=== PATIENT | female | born 1960 | race Caucasian/White ===

== ENCOUNTER 2024-05-31 06:16 | Emergency (ER) | payer BC, SELFPAY ==
--- OUTSIDE RECORDS SUMMARY | 2024-05-31 06:18 | XMS_ITS ---
Author Organization [facility] Address [address] [place] [address] Care Team Providers Care Radio Machinist Name Role Phone Unavailable Unavailable Unavailable Surgery Details Not on file Complications Check Surgery Details section. Procedure Estimated Blood Loss Check Surgery Details section. Procedure Findings Check Surgery Details section. Procedure Specimens Taken Check Surgery Details section.
--- OUTSIDE RECORDS SUMMARY | 2024-05-31 06:18 | XMS_ITS | Clinical Summary ---
Author Organization [facility] Address [address] [place] [id number] Care Team Providers Care Milking Machine Technician Name Role Phone Jayant Mckeon P.A.-C. Primary Care Provider Source Comments Patient records contain information from all sites at [facility]. For routine questions regarding patient records, call [phone] during business hours, M-F 8:00 AM - 5:00 PM Central Time. Record requests for emergency care only can be directed to [phone] at any time.[facility] Allergies Active Allergy Reactions Criticality Noted Date Comments Adhesive Tape-Silicones Rash 06/30/2007 Bee Venom Protein (Honey Bee) Shortness of breath (Reselect Reaction) 06/15/2006 Cephalexin GI intolerance 09/03/2010 Monosodium Glutamate Hypertension 06/15/2006 Camphor Other (see comments) 08/15/2023 Any types of ointments causes skin to dry and breakouts Sulfa (Sulfonamide Antibiotics) GI intolerance,Rash 06/13/2006 upset stomach Medications * This document contains information received from the source organization and may not represent a complete record from that organization. losartan-hydroC HLOROthiazide (HYZAAR) 100-25 mg per tablet Take 1 tablet by mouth daily. 90 tablet 3 06/30/19 24 025 Active EPINEPHrine 0.3 mg/0.3 mL injection syringe Inject 0.3 mL (0.3 mg total) intramuscularly as needed for anaphylaxis. Inject into the thigh. 4 each 3 06/30/19 [address] aspirin [address] tablet Take 81 mg by mouth daily. Active ezetimibe (ZETIA) 10 mg tablet Take 1 tablet (10 mg total) by mouth daily. 90 tablet 3 08/10/19 24 Active UNABLE TO FIND 1 each daily. Estrodim Active UNABLE TO FIND Take 1 each by mouth daily. Zinc Ag Vitamin D Active loratadine (CLARITIN) 10 mg tablet Take 10 mg by mouth daily. Active benzonatate (Tessalon Perles) 100 mg capsule Take 1 capsule (100 mg total) by mouth 3 (three) times a day as needed for cough. 30 capsule 11 12/09/19 24 Active levothyroxine 88 mcg tablet Take 1 tablet (88 mcg total) by mouth daily before morning meal. 90 tablet 3 01/10/20 24 Active ibuprofen 600 mg tablet Take 1 tablet (600 mg total) by mouth every 8 (eight) hours as needed for moderate pain or score 4-6 of 10. 360 tablet 3 04/05/20 24 Active fluticasone propionate (Flonase) 50 mcg/actuation nasal sprayIndication s:Acute Upper Respiratory Infection Unspecified,Sin usitis Administer 2 sprays into each nostril daily for 10 days. 16 g 11 05/02/20 24 Active propranoloL (InderaL) 20 mg tablet Take 1 tablet (20 mg total) by mouth 3 (three) times a day as needed (tremor). 90 tablet 11 05/02/20 24 Active doxycycline hyclate (Vibramycin) 100 mg capsuleIndicati ons:Sinusitis Acute Maxillary Take 1 capsule (100 mg total) by mouth 2 (two) times a day before morning and evening meals for 10 days. 20 capsule 05/22/20 24 025 Active fluticasone propionate (Flonase) 50 mcg/actuation nasal sprayIndication s:Acute Upper Respiratory Infection Unspecified,Sin usitis Administer 2 sprays into each nostril daily for 10 days. 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 Tremor Essential (Primary Dx); Acute Upper Respiratory Infection Unspecified; Sinusitis; Malignant Neoplasm Of Thyroid (HCC) 05/02/2024 Refill Department of [facility], [facility], in [address] [phone] Jayant Mckeon P.A.-C. Med Refill 04/13/2024 2:30 PM INSPECTOR OPEN DIE Office Visit Department of [facility], [facility], in [address] [phone] Renetta Garcia APRN, C.N.P., D.N.P. Acute Upper Respiratory Infection Unspecified (Primary Dx); Sinusitis 04/13/2024 Nurse Triage Department of [facility], in [address] [phone] Trish Fisher, R.Juan Carlos. Upper Respiratory Infection; Ear Fullness 04/12/2024 2:30 PM INSPECTOR OPEN DIE Ancillary Procedure Department of Radiology in the Breast Clinic, [facility] in [address] [address] Jayant Mckeon P.A.-C. Screening Osteoporosis 04/10/2024 11:00 AM INSPECTOR OPEN DIE Virtual Visit Division of Endocrinology in [place], [place] [address] [place] [address] Rodney Briceno M.B.B.S. Malignant Neoplasm Of Thyroid (HCC) 04/09/2024 3:40 PM INSPECTOR OPEN DIE - 04/09/2024 11:59 PM INSPECTOR OPEN DIE Hospital Encounter Department of Radiology, [facility], in [place], [place] [address] [place] [address] Rodney Briceno M.B.B.S. Malignant Neoplasm Of Thyroid (HCC) Discharge Disposition: Home or Self Care 04/09/2024 2:44 PM INSPECTOR OPEN DIE - 04/09/2024 3:39 PM INSPECTOR OPEN DIE Hospital Encounter Department of Laboratory Medicine, [facility], in [place], [place] [address] [facility] [place] [phone] Rodney Briceno M.B.B.S. Malignant Neoplasm Of Thyroid (HCC) Discharge Disposition: Home or Self Care 04/09/2024 12:00 PM INSPECTOR OPEN DIE Procedure visit Department of Dermatology in [place], [place] [address] [place] [address] Selma Adorno M.D. Hodgkins, [place] M Hair Facial (Hirsutism) 04/04/2024 4:15 PM INSPECTOR OPEN DIE Comprehensive Visit Department of Dermatology in [place], [place] [address] [place] [address] Selma Adorno M.D. Cancer Skin Basal Cell Personal History (Primary Dx); Hair Facial (Hirsutism); Nevi Multiple; Keratosis Seborrheic; Keratosis Seborrheic Inflamed; Dermatoheliosis; Angioma Burton 03/01/2024 2:07 PM CDT - 03/01/2024 11:59 PM CDT Hospital Encounter Department of Laboratory Medicine in [place], [place] [address] [place] [address] Rodney Briceno M.B.B.S. Malignant Neoplasm Of Thyroid (HCC) Discharge Disposition: Home or Self Care from Last 3 Months Immunizations Name Administration Dates Next Due DT, Pediatric 03/04/2004 HepA Adult 06/10/1999,05/26/1998 HepB, Unspecified 03/04/2004,05/25/1999,05/26/19 98 Influenza, Seasonal, Injectable 05/03/2007,03/30 Pneumococcal Conjugate(PCV), Unspecified 10/06/2023(Deferred: Patient decision) SARS-COV-2 (COVID-19) - JANS SEN (J&J)(Discontinued) 04/08/2021 SARS-COV-2 (COVID-19) - PFIZ ER BIVALENT TS(Discontinued)(12 YEARS OR OLDER) 10/06/2023(Deferred: Patient decision) Tdap 03/31/2015 typhoid vaccine, parenteral (discontinued) 02/19/2010 Family History Medical History Relation Name Comments No Known Problems Brother jhoan Dementia Father Dad Heart attack Father Dad Hypertension Father Dad Melanoma Father Dad Breast cancer Father's Sister Miladis and Mo No Known Problems Mother Breast cancer Mother's Sister Patti Breast cancer Paternal Grandmother Romi Breast cancer Sister 1 maureen Ovarian cancer Hypertension Sister 1 maureen Ovarian cancer Sister 1 maureen Irritable bowel syndrome Sister 2 cullen Relation Name Status Comments Brother jhoan Alive Father Dad (Age 91) Father's Sister Miladis and Mo Mother Alive Mother's Sister Patti Paternal Grandmother Romi Sister 1 maureen Alive Sister 2 cullen Alive Social History Tobacco Use Types Packs/Day Years Used Date Smoking Tobacco: Never Passive Smoke Exposure: Never Smokeless Tobacco: Never Tobacco Cessation:Counseling Given: Not Answered Alcohol Use Standard Drinks/Week Comments Yes 0 (1 standard drink = 0.6 oz pur e alcohol) Varies [facility] Utilities Answer Date Recorded In the past 12 months has [facility] [employer], oil, or water [employer] threatened to shut off services in your home? Patient declined 06/29/2023 Humiliation, Afraid, Rape, and Kick questionnair e Answer Date Recorded Within the last year, have y ou been afraid of your partner or ex-partner? Patient declined 05/21/2022 Within the last year, have y ou been humiliated or emotionally abused in other ways by your partner or ex-partner? Patient declined 05/21/2022 Within the last year, have y ou been kicked, hit, slapped, or otherwise physically hurt by your partner or ex-partner? Patient declined 05/21/2022 Within the last year, have y ou been raped or forced to have any kind of sexual activity by your partner or ex-partner? Patient declined 05/21/2022 Social Connection and Isolation Panel [NHANES] A nswer Date Recorded In a typical week, how many times do you talk on the phone with family, friends, or neighbors? Patient declined 05/21/2022 How often do you get togethe r with friends or relatives? Patient declined 05/21/2022 How often do you attend hoahaoism or confucianism serv ices? Patient declined 05/21/2022 Do you belong to any clubs o r organizations such as hoahaoism groups, unions, fraternal or athletic groups, or school groups? Patient declined 05/21/2022 How often do you attend meet ings of the clubs or organizations you belong to? Patient declined 05/21/2022 Are you , , di vorced, , never , or living with a partner? Patient declined 05/21/2022 AUDIT-C Answer Date Recorded Q1: How often do you have a drink containing alc ohol? Patient declined 05/21/2022 Average Number of Drinks Not on file 022 Frequency of Binge Drinking Not on file 04/30 Overall Financial Resource Strain (CARDIA) Answe r Date Recorded How hard is it for you to pa y for the very basics like food, housing, medical care, and heating? Patient declined 05/21/2022 PHQ-2 Answer Date Recorded PHQ-2 Score 0 06/29/2023 [facility] - Occupational Stress Questionnaire Answer Date Recorded Do you feel stress - tense, restless, nervous, or anxious, or unable to sleep at night because your mind is troubled all the time - these days? Patient declined 05/21/2022 Exercise Vital Sign Answer Date Recorde d On average, how many days pe r week do you engage in moderate to strenuous exercise (like a brisk walk)? Patient declined On average, how many minutes do you engage in exercise at this level? Patient declined 06/29/2023 Hunger Vital Sign Answer Date Recorded Within the past 12 months, y ou worried that your food would run out before you got the money to buy more. Patient declined Within the past 12 months, t he food you bought just didn't last and you didn't have money to get more. Patient declined PRAPARE - Transportation Answer Date Re corded In the past 12 months, has l ack of transportation kept you from medical appointments or from getting medications? Patient declined 06/29/2023 In the past 12 months, has l ack of transportation kept you from meetings, work, or from getting things needed for daily living? Patient declined 06/29/2023 Nutrition Answer Date Recorded Nutrition: EVOO Fat Source 13 02/11 Nutrition: Servings of Fruits/Vegetables per Day Not on file 02/12/2020 Dental Answer Date Recorded Dental: Regular Dentist Unknown 07/29/19 Housing Stability Answer Date Recorded What is your living situation today? Patient dec lined 06/29/2023 Comments No Sex and Gender Information Value Date Recorded Sex Assigned at Female 02/12/2018 8:50 PM CDT Legal Sex Female 6:29 AM INSPECTOR OPEN DIE Gender Identity Female 02/12/2018 8:50 PM CDT Sexual Orientation Straight 02/12/2018 8 :50 PM CDT Last Filed Vital Signs Vital Sign Reading Time Taken Comments Blood Pressure 135/83 05/02/2024 1:11 PM INSPECTOR OPEN DIE Pulse 85 05/02/2024 1:11 PM INSPECTOR OPEN DIE Temperature 36.2 C (97.2 F) 05/02/2024 1:11 PM INSPECTOR OPEN DIE Respiratory Rate 20 05/02/2024 1:11 PM INSPECTOR OPEN DIE Oxygen Saturation 93% 09/13/2023 10: 58 AM CDT Inhaled Oxygen Concentration - - Weight 91.2 kg (200 lb 15.2 oz) 05/02/2024 1:11 PM INSPECTOR OPEN DIE Height 162.5 cm (5' 3.98) 05/02/2024 1:11 PM CS T Body Mass Index 34.52 05/02/2024 1:11 PM INSPECTOR OPEN DIE Plan of Treatment Health Maintenance Due Date Last Done Comments CT Colonography 1958 Cologuard 1960 FIT 1958 HIV Screening 1958 Pneumococcal vaccine (50+ years) (1 of 1 - PCV) 2008 Zoster Vaccines (1 of 2) 2008 COVID-19 Vaccine (3 - 2024-25 season) 2024 04/08/2021, 09/26/2020 Influenza Vaccine (#1) 2024 05/03/2007, 2005 Creatinine Level (Kidney Function Test) 06/28/2024 06/28/2023, 05/20/2022, 05/18/2021, Additional history exists Lipid (Cholesterol) Screening 06/28/2024 06/28/2023, 05/20/2022, 05/18/2021, Additional history exists Potassium Level 06/28/2024 06/28/2023, 04/30, 05/18/2021, Additional history exists Sodium Level 06/28/2024 06/28/2023, 04/30, 05/18/2021, Additional history exists Mammogram 06/30/2024 06/30/2023, 04/30, 03/18/2021, Additional history exists Visit: Chronic Disease, age 18+ 12/08/2024 12/09/2023 DTaP,Tdap,and Td Vaccines (3 - Td or Tdap) 03/31/2025 03/31/2015, 03/04/2004 Thyroid Stimulating Hormone (TSH) test for thyroid function 04/09/2025 04/09/2024, 03/01/2024, 01/09/2024, Additional history exists Office Visit for Blood Pressure Check / Re-check 05/02/2025 05/02/2024 Fasting Glucose for Diabetes Screening 06/28/2026 06/28/2023, 05/20/2022, 05/18/2021, Additional history exists Colonoscopy 05/14/2029 05/14/2019, 10/28, 05/08/2009 (Performed elsewhere) Colorectal Cancer Screening 05/14/2029 Hepatitis A Vaccines Completed 06/10/1999, 05/26/19 98 Depression Screening (Annual PHQ-2) Completed 06/30/2023, 06/29/2023 Fall Risk Screen (Annual) Completed 09/13/2023 Bone Density Scan (Osteoporosis Screen) Discontinued 04/12/2024 IPV Vaccines Aged Out No longer eligi ble based on patient's age to complete this topic Medical Devices Implanted Type Area Deployment Technician Device Identifier Shelf Expiration Date Model / Serial / Lot Hardware E.G. Pins/Screws/Ro ds Hardware e.g. pins/screws/ rods Right: Foot Clp Hrzn Ti 6 Clp Sm Red - [id number] Implanted:Qty: 1 on 09/13/2023 by Kirby Benítez M.D. at [facility] Hardware e.g. pins/screws/ rods Right: [employer] [id number] / / Procedures Procedure Name Priority Date/Time Associated Diagnosis Comments BMD BONE DENSITY SPINE HIPS RAD - Routine (most inpatients and all outpatients) 04/12/2024 2:43 PM INSPECTOR OPEN DIE Screening Osteoporosis US THYROID RAD - Routine (most inpatients and all outpatients) 04/09/2024 4:35 PM INSPECTOR OPEN DIE Malignant Neoplasm Of Thyroid (HCC) T4 (THYROXINE), FREE, S Routine 04/09/2024 2:52 PM INSPECTOR OPEN DIE Malignant Neoplasm Of Thyroid (HCC) THYROID-STIMULATING HORMONE-SENSITIVE (S-TSH) Routine 04/09/2024 2:52 PM INSPECTOR OPEN DIE Malignant Neoplasm Of Thyroid (HCC) THYROGLOBULIN, TM, S Routine 04/09/2024 2:52 PM INSPECTOR OPEN DIE Malignant Neoplasm Of Thyroid (HCC) SCOTT [employer]ER Routine 04/09/2024 12:00 PM INSPECTOR OPEN DIE Hair Facial (Hirsutism) THYROID-STIMULATING HORMONE-SENSITIVE (S-TSH) Routine 03/01/2024 2:12 PM CDT Malignant Neoplasm Of Thyroid (HCC) BI BREAST SCREENING BILATERAL WITH TOMOSYNTHESIS RAD - Routine (most inpatients and all outpatients) 06/30/2023 1:42 PM INSPECTOR OPEN DIE Screening Mammogram Breast Cancer LIPID PANEL, S Routine 06/28/2023 11:44 AM INSPECTOR OPEN DIE Hypertension Essential Primary Hyperlipidemia Screening Examination Diabetes Mellitus Encounter For Screening For Cardiovascular Disorders COMPREHENSIVE METABOLIC PANEL, S/P Routine 06/28/2023 11:44 AM INSPECTOR OPEN DIE Hypertension Essential Primary Hyperlipidemia Screening Examination Diabetes Mellitus Encounter For Screening For Cardiovascular Disorders from Last 3 Months or Most Recently Relevant to Health Maintenance Results * BMD Bone Density Spine Hips (04/12/2024 2:43 PM INSPECTOR OPEN DIE) Anatomical Region Laterality Modality Hip, Lumbar Spine, Nuclear M edicine RST LOS, Musculoskeletal ARZ LOS, Muskuloskeletal FLA LOS N/A Radio graphic Imaging Impressions 04/12/2024 3:01 PM INSPECTOR OPEN DIE Normal bone mineral density. Narrative 04/12/2024 3:01 PM INSPECTOR OPEN DIE EXAM: BMD BONE DENSITY SPINE HIPS Bone Mineral Density (BMD) analysis performed on Petrabytes with serial number [id number]. FINDINGS: Left Hip: Femur Neck: BMD = 0.948 g/cm2 T-score = -0.6 Z-score = 0.8 Total Hip: BMD = 1.038 g/cm2 T-score = 0.2 Z-score = 1.5 Right Hip: Femur Neck: BMD = 0.995 g/cm2 T-score = -0.3 Z-score = 1.2 Total Hip: BMD = 1.068 g/cm2 T-score = 0.5 Z-score = 1.7 Lumbar Spine: L1: BMD = 1.257 g/cm2 L2: BMD = 1.366 g/cm2 L3: BMD = 1.404 g/cm2 L4: BMD = 1.566 g/cm2 Total Lumbar Spine (L1-L4): BMD = 1.406 g/cm2 T-score = 1.7 Z-score = 3.3 Trabecular Bone Score: L1-L4: TBS = 1.421 < 1.23: low 1.23 -1.31: borderline > 1.31: normal A low TBS has been associated with increased risk of fractures in certain populations. TBS should not be used alone to determine treatment recommendations. It can be used in conjunction with BMD and FRAX to inform management. Please note: A more comprehensive DXA report, including images and graphs, is available in QREADS. In the absence of other causes of low BMD or demonstrated skeletal fragility, osteoporosis may be diagnosed in post-menopausal women and men at or above age 50 when the T-score is at or below -2.5 as defined by the WHO. Low bone density is present at T-scores between -1 and -2.5. The diagnosis in pre-menopausal women and men < age 50 can be based on low bone density or evidence of skeletal fragility in the appropriate clinical setting. Patient does not meet ISCD guidelines for FRAX calculations. Procedure Note Steffen Lewis M.D. - 04/12/2024 EXAM: BMD BONE DENSITY SPINE HIPS Bone Mineral Density (BMD) analysis performed on Petrabyteswith serial number [id number]. FINDINGS: Left Hip: Femur Neck: BMD = 0.948 g/cm2 T-score = -0.6 Z-score = 0.8 Total Hip: BMD = 1.038 g/cm2 T-score = 0.2 Z-score = 1.5 Right Hip: Femur Neck: BMD = 0.995 g/cm2 T-score = -0.3 Z-score = 1.2 Total Hip: BMD = 1.068 g/cm2 T-score = 0.5 Z-score = 1.7 Lumbar Spine: L1: BMD = 1.257 g/cm2 L2: BMD = 1.366 g/cm2 L3: BMD = 1.404 g/cm2 L4: BMD = 1.566 g/cm2 Total Lumbar Spine (L1-L4): BMD = 1.406 g/cm2 T-score = 1.7 Z-score = 3.3 Trabecular Bone Score: L1-L4: TBS = 1.421 < 1.23: low 1.23 -1.31: borderline > 1.31: normal A low TBS has been associated with increased risk of fractures in certainpopulations. TBS should not be used alone to determine treatmentrecommendations. It can be used in conjunction with BMD and FRAX to informmanagement. Please note: A more comprehensive DXA report, including images and graphs,is available in QREADS. In the absence of other causes of low BMD or demonstrated skeletalfragility, osteoporosis may be diagnosed in post-menopausal women and menat or above age 50 when the T-score is at or below -2.5 as defined by theWHO. Low bone density is present at T-scores between -1 and -2.5. The diagnosis in pre-menopausal women andmen < age 50 can be based on low bone density or evidence of skeletalfragility in the appropriate clinical setting. Patient does not meet ISCD guidelines for FRAX calculations. IMPRESSION: Normal bone mineral density. us Jayant Mckeon P.A.-C. IMG DXA PROCEDURES Fin al Result * US Thyroid (04/09/2024 4:35 PM INSPECTOR OPEN DIE) Anatomical Region Laterality Modality Head and Neck, Ultrasound RS T LOS, Ultrasound ARZ LOS, Ultrasound FLA LOS N/A Ultrasound Impressions 04/10/2024 11:39 AM INSPECTOR OPEN DIE 1. Recommend ultrasound-guided FNA of a new high suspicion nodule in the left thyroid lobe. 2. New left cervical level 5 lymph node with suspicious morphologic features. Consider tissue sampling. 3. New prominent right level 4-5 lymph nodes without abnormal features. Continued attention on follow up recommended. Narrative 04/10/2024 11:39 AM INSPECTOR OPEN DIE EXAM: US THYROID COMPARISON: Thyroid ultrasound 07/04/2023 FINDINGS: Status post right thyroid lobectomy and isthmusectomy. The left thyroid lobe measures: 1.3 cmx1.1 cmx3.3 cm The thyroid parenchyma appears: normal. A nodule in the mid left thyroid lobe measures 0.6 x 0.4 x 0.6 cm and has the following features: * composition: solid (1) * echogenicity: isoechoic (0) * shape: taller than wide (1) * margins: indistinct margins (0) * echogenic foci: macrocalcification (1). The [place] ultrasound score is 3. Based on the [facility] Thyroid Nodule Care Process Model, the nodule has high suspicion for malignancy (>20%). Lymph nodes: Moderately hypoechoic left cervical level 5 lymph node with round morphology and suggestion of punctate echogenic foci. Right level 5 lymph node measuring 0.8 x 0.6 x 0.3 cm with normal reniform shape and vascular hilum. Right level 4 lymph node measuring 0.8 x 0.6 x 0.4 cm. The thyroid nodule descriptions and categories are based on the Thyroid Nodule Care Process Model established by the [facility] [place]. [email or web address]/[email or web address]//sec- [email or web address] The [facility] Thyroid Nodule CPM states the following recommendations: No suspicion or Extremely low-suspicion nodule: No FNA, no imaging f/u Low-suspicion nodule: FNA if greater than or equal to 25 mm; US f/u in 2-5 yrs if greater than or equal to 15 mm Intermediate-suspicion nodule: FNA if greater than or equal to 15 mm; US f/u in 1-3 yrs if greater than or equal to 10 mm High-suspicion nodule: FNA if greater than or equal to 10 mm (or smaller if desired); US f/u in 1 yr if not FNA Procedure Note Manny Park M.D., M.S. - 04/10/2024 EXAM: US THYROID COMPARISON: Thyroid ultrasound 07/04/2023 FINDINGS: Status post right thyroid lobectomy and isthmusectomy. The left thyroid lobe measures: 1.3 cmx1.1 cmx3.3 cm The thyroid parenchyma appears: normal. A nodule in the mid left thyroid lobe measures 0.6 x 0.4 x 0.6 cm and hasthe following features: * composition: solid (1) * echogenicity: isoechoic (0) * shape: taller than wide (1) * margins: indistinct margins (0) * echogenic foci: macrocalcification (1). The [place] ultrasound score is 3. Based on the [facility] Thyroid [facility]od[facility] Process Model, the nodule has high suspicion for malignancy (>20%). Lymph nodes: Moderately hypoechoic left cervical level 5 lymph node withround morphology and suggestion of punctate echogenic foci. Right level 5 lymph node measuring 0.8 x 0.6 x 0.3 cm with normal reniformshape and vascular hilum. Right level 4 lymph node measuring 0.8 x 0.6 x0.4 cm. The thyroid nodule descriptions and categories are based on the ThyroidNodule Care Process Model established by the [facility] [place].[email or web address]/[email or web address] /- [email or web address] The [facility] Thyroid Nodule CPM states the followingrecommendations: No suspicion or Extremely low-suspicion nodule: No FNA, no imagingf/u Low-suspicion nodule: FNA if greater than or equal to 25 mm; US f/uin 2-5 yrs if greater than or equal to 15 mm Intermediate-suspicion nodule: FNA if greater than or equal to 15 mm;US f/u in 1-3 yrs if greater than or equal to 10 mm High-suspicion nodule: FNA if greater than or equal to 10 mm (orsmaller if desired); US f/u in 1 yr if not FNA IMPRESSION: 1. Recommend ultrasound-guided FNA of a new high suspicion nodule in theleft thyroid lobe. 2. New left cervical level 5 lymph node with suspicious morphologicfeatures. Consider tissue sampling. 3. New prominent right level 4-5 lymph nodes without abnormal features.Continued attention on follow up recommended. Rodney Brian IMG US PROCEDURES Final Result * (ABNORMAL) Thyroglobulin, Tumor Marker (04/09/2024 2:52 PM INSPECTOR OPEN DIE) Pathologist [facility] Thyroglobulin Antibody, S 4.3(H) <1.8 IU/mL 04/10/2024 9:32 AM INSPECTOR OPEN DIE [facility] Thyroglobulin, Tumor Marker, S 7.2(H) ng/mL 04/10/2024 9:19 AM INSPECTOR OPEN DIE [facility] Comment: ----REFERENCE VALUE---- Athyrotic <0.1 Intact Thyroid <=33 Thyroglobulin Interpretation SEE COMMENT 04/10/2024 9:32 AM INSPECTOR OPEN DIE [facility] Comment: Quantitation of thyroglobulin may be unreliable due to the presence of anti-thyroglobulin antibodies. Thyroglobulin (Tg) levels must be interpreted in the context of TSH levels, serial Tg measurements and radioiodine ablation status. Tg levels of 2.1-9.9 ng/mL in athyrotic individuals on suppressive therapy indicate an increased risk of clinically detectable recurrent papillary/follicular thyroid cancer. ----ADDITIONAL INFORMATION---- PLEASE NOTE: The given cutoff of <1.8 IU/mL is for the detection of potential thyroglobulin antibody (TgAb) interference in thyroglobulin immunoassays. Thyroglobulin flagging is based on athyrotic reference values. A thyroglobulin antibody (TgAb) reference cutoff of <4.0 IU/mL may be more suitable for the evaluation of autoimmune thyroiditis. The thyroglobulin and thyroglobulin antibody testing methods are immunoenzymatic assays manufactured by [employer] and performed on the [employer] DXI 800. Values obtained from different assay methods or kits may be different and cannot be used interchangeably. The results cannot be interpreted as absolute evidence for the presence or absence of malignant disease. Blood (Blood, Venous) 04/09/2024 2:52 PM INSPECTOR OPEN DIE 04/10/2024 7:37 AM INSPECTOR OPEN DIE Rodney FranzB.S. LAB BLOOD ADD-ON F inal Result [facility] [address] [place] [address] [facility] [address] [place] [address] * S-TSH (Thyroid-Stimulating Hormone - Sensitive) (04/09/2024 2:52 PM INSPECTOR OPEN DIE) Only the most recent of2 resultswithin the time period is included. Pathologist [facility] TSH, Sensitive 1.9 0.3 - 4.2 mIU/L 04/09/2024 5:01 PM INSPECTOR OPEN DIE [facility] Blood (Blood, Venous) 04/09/2024 2:52 PM INSPECTOR OPEN DIE 04/09/2024 4:20 PM INSPECTOR OPEN DIE Rodney FranzB.S. LAB BLOOD ADD-ON F inal Result [facility] [place] [address], [facility] [place] [address] [place] [address] * T4 (Thyroxine), Free (04/09/2024 2:52 PM INSPECTOR OPEN DIE) T4 (Thyroxine), Free, P 1.4 0.9 - 1.7 ng/dL 04/09/2024 5:01 PM INSPECTOR OPEN DIE [facility] Blood (Blood, Venous) 04/09/2024 2:52 PM INSPECTOR OPEN DIE 04/09/2024 4:20 PM INSPECTOR OPEN DIE us Rodney Brian LAB BLOOD ADD-ON F inal Result [facility] [address] [place] [address], [place] [facility] [place] [address] [place] [address] * SCOTT Community Services Manager (04/09/2024 12:00 PM INSPECTOR OPEN DIE) Narrative Leo Kellogg M - 04/09/2024 12:00 PM INSPECTOR OPEN DIE Leo Kellogg M 04/09/2024 12:01 PM CHIEF COMPLAINT / REASON FOR VISIT Cosmetic consultation HISTORY OF PRESENT ILLNESS Sarika Mckeon is a 63 y.o. presenting for cosmetic consultation today. Patient is interested in discussing treatment options for Hair removal options for the face. ASSESSMENT / PLAN Discussed Laser hair removal with the patient. Patient rowe a mix of black and wise hairs and we went over that the laser will not target the hairs that have no pigment in them. Patient is going to seek out to different options for electrolysis. FOLLOW UP As needed. *DO NOT CHARGE-PATIENT HAS ALREADY PAID* us Selma Adorno M.D. DERM PROCEDURE ORDERABLES F inal Result * BI Breast Screening Bilateral with Tomosynthesis (06/30/2023 1:42 PM INSPECTOR OPEN DIE) Anatomical Region Laterality Modality Breast, Breast Imaging RST L OS, Breast Imaging ARZ LOS, Breast Imaging FLA LOS Bilateral Mammography Impressions 06/30/2023 2:22 PM INSPECTOR OPEN DIE Benign. RECOMMENDATION: Annual Screening Mammogram ASSESSMENT: BI-RADS: 2: Benign. Narrative 06/30/2023 2:22 PM INSPECTOR OPEN DIE EXAM: BI BREAST SCREENING BILATERAL WITH TOMOSYNTHESIS Current study was evaluated with a Computer Aided Detection (CAD) system. INDICATION: Screening mammogram. COMPARISON: Prior exam(s) were available and reviewed for comparison. DENSITY: c. The breast(s) are heterogeneously dense, which may obscure small masses. FINDINGS: No mammographic findings of malignancy. Stable therapy changes right breast. Procedure Note Chaz Garza M.D. - 06/30/2023 EXAM: BI BREAST SCREENING BILATERAL WITH TOMOSYNTHESIS Current study was evaluated with a Computer Aided Detection (CAD) system. INDICATION: Screening mammogram. COMPARISON: Prior exam(s) were available and reviewed for comparison. DENSITY: c. The breast(s) are heterogeneously dense, which may obscuresmall masses. FINDINGS: No mammographic findings of malignancy. Stable therapy changesright breast. IMPRESSION: Benign. RECOMMENDATION: Annual Screening Mammogram ASSESSMENT: BI-RADS: 2: Benign. us Jayant Mckeon P.A.-C. IMG BI PROCEDURES [facility] Result * (ABNORMAL) Lipid Panel (06/28/2023 11:44 AM INSPECTOR OPEN DIE) Triglycerides 158(H) mg/dL 06/28/2023 2:33 PM INSPECTOR OPEN DIE [facility] Comment: ----REFERENCE VALUE---- Normal: <150 mg/dL Borderline High: 150-199 mg/dL High: 200-499 mg/dL Very High: > or =500 mg/dL Cholesterol, Total 267(H) mg/dL 2023 2:33 PM INSPECTOR OPEN DIE [facility] Comment: ----REFERENCE VALUE---- Desirable: < 200 mg/dL Borderline High: 200 - 239 mg/dL High: > or = 240 mg/dL Cholesterol, LDL, Calculated 171(H) mg/dL 06/28/2023 2:33 PM INSPECTOR OPEN DIE [facility] Comment: ----REFERENCE VALUE---- Desirable: <100 mg/dL Above Desirable: 100-129 mg/dL Borderline High: 130-159 mg/dL High: 160-189 mg/dL Very High: >=190 mg/dL ----ADDITIONAL INFORMATION---- LDL cholesterol calculated using the Alex/NIH equation. Cholesterol, HDL 68 >=50 mg/dL 06/28/19 2:33 PM INSPECTOR OPEN DIE [facility] Cholesterol, Non-HDL, Calculated 199(H) mg/dL 06/28/2023 2:33 PM INSPECTOR OPEN DIE [facility] Comment: ----REFERENCE VALUE---- Desirable: <130 mg/dL Above Desirable: 130-159 mg/dL Borderline High: 160-189 mg/dL High: 190-219 mg/dL Very High: > or =220 mg/dL Fasting (8 HR or more) No 06/28/2023 1:38 PM INSPECTOR OPEN DIE [facility] Blood (Blood, Venous) 06/28/2023 11:44 AM INSPECTOR OPEN DIE 06/28/2023 1:38 PM INSPECTOR OPEN DIE us Jayant Mckeon P.A.-C. LAB BLOOD ADD-ON Final Result [facility] [address] [place] [address], [facility] [place] [address] [place] [address] * (ABNORMAL) Comprehensive Metabolic Panel (06/28/2023 11:44 AM INSPECTOR OPEN DIE) Potassium, P 4.0 3.6 - 5.2 mmol/L 06/28/2023 2:33 PM INSPECTOR OPEN DIE [facility] Sodium, P 138 135 - 145 mmol/L 06/28/2023 2:33 PM INSPECTOR OPEN DIE [facility] Chloride, P 100 98 - 107 mmol/L 06/28/2023 2:33 PM INSPECTOR OPEN DIE [facility] Bicarbonate, P 30(H) 22 - 29 mmol/L 06/28/2023 2:33 PM INSPECTOR OPEN DIE [facility] Anion Gap, P 8 7 - 15 06/28/2023 2:33 PM INSPECTOR OPEN DIE [facility] BUN (Blood Urea Nitrogen), P 12 6 - 21 mg/dL 06/28/2023 2:33 PM INSPECTOR OPEN DIE [facility] Creatinine 0.61 0.59 - 1.04 mg/dL 06/28/2023 2:33 PM INSPECTOR OPEN DIE [facility] Estimated GFR (eGFR) >90 >=60 mL/min/BS A 06/28/2023 2:33 PM INSPECTOR OPEN DIE [facility] Comment: Estimated GFR calculated using the 2020 CKD_EPI creatinine equation. Calcium, Total, P 9.4 8.8 - 10.2 mg/dL 06/28/2023 2:33 PM INSPECTOR OPEN DIE [facility] Glucose, P 107 70 - 140 mg/dL 06/28/2023 2:33 PM INSPECTOR OPEN DIE [facility] Protein, Total, P 7.2 6.3 - 7.9 g/dL 06/28/2023 2:33 PM INSPECTOR OPEN DIE [facility] Albumin, P 4.5 3.5 - 5.0 g/dL 06/28/2023 2:33 PM INSPECTOR OPEN DIE [facility] Aspartate Aminotransferase (AST), P 63(H) 8 - 43 U/L 06/28/2023 2:33 PM INSPECTOR OPEN DIE [facility] Alkaline Phosphatase, P 68 35 - 104 U/L 06/28/2023 2:33 PM INSPECTOR OPEN DIE [facility] Alanine Aminotransferase (ALT), P 75(H) 7 - 45 U/L 06/28/2023 2:33 PM INSPECTOR OPEN DIE [facility] Bilirubin, Total, P 0.6 0.0 - 1.2 mg/dL 06/28/2023 2:33 PM INSPECTOR OPEN DIE [facility] Blood (Blood, Venous) 06/28/2023 11:44 AM INSPECTOR OPEN DIE 06/28/2023 1:38 PM INSPECTOR OPEN DIE us Jayant Mckeon P.A.-C. 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 See document viewer. * Full Code (Latest Code Status on File) Date Activated Date Inactivated Comments 09/13/2023 5:55 AM 09/13/2023 2:09 PM Question Answer Comments Full Code: Not Discussed Due to: Patient not available Care Teams Milking Machine Technician Relationship Specialty Start Date End Date Jayant Mckeon P.A.-C. [address] [place] [phone] PCP - General Family Medicine 02/08/20
--- OUTSIDE RECORDS SUMMARY | 2024-05-31 06:18 | XMS_ITS | Encounter Summary ---
Author Organization [facility] Address [address] [place] [address] Care Team Providers Care Tax Intern Name Role Phone Jayant Mckeon P.A.-C. Primary Care Provider Reason for Visit * Reason Comments Follow-up 3 course of antibiot ics for sinus inf// still not better * Appointment Request (Routine) - Closed Specialty Diagnoses / Procedures Referred By Guillermo saucedo Referred To Contact Family Medicine Referral ID Status Reason Start Date Expiration Date Visits Re quested Visits Authorized [id number] Closed 04/30/2024 04/30/2025 1 1 Encounter Details Date Type Department Care Team (Late st Contact Info) Description 05/02/2024 1:30 PM SCALE RECLAMATION TENDER Office Visit Department of Family Medicine, [facility], in [place], [place] [address] [place] [phone] Jayant Mckeon PCatyACaty-CCaty [address] [place] [phone] Tremor Essential (Primary Dx); Acute Upper Respiratory Infection Unspecified; Sinusitis; Malignant Neoplasm Of Thyroid (HCC) Social History Tobacco Use Types Packs/Day Years Used Date Smoking Tobacco: Never Passive Smoke Exposure: Never Smokeless Tobacco: Never Tobacco Cessation:Counseling Given: Not Answered Alcohol Use Standard Drinks/Week Comments Yes 0 (1 standard drink = 0.6 oz pur e alcohol) Varies [facility] Utilities Answer Date Recorded In the past 12 months has [employer], oil, or water [employer] threatened to shut off services in your [...] declined 05/21/2022 How often do you attend confucianist or pentecostalism serv ices? Patient declined 05/21/2022 Do you belong to any clubs o r organizations such as confucianist groups, unions, fraternal or athletic groups, or [...] Answer Date Recorded PHQ-2 Score 0 06/29/2023 [facility] [place] of Occupat ional Health - Occupational Stress [...] Date Recorded Dental: Regular Dentist Unknown 07/29/19 21 Housing Stability Answer Date Recorded What is your living situation today? Patient dec lined 06/29/2023 Comments No Sex and Gender Information Value Date Recorded Sex Assigned at Female 02/12/2018 8:50 PM CDT Legal Sex Female 6:29 AM SCALE RECLAMATION TENDER Gender Identity Female 02/12/2018 8:50 PM CDT Sexual Orientation Straight 02/12/2018 8: 50 PM CDT documented as of this encounter Last Filed Vital Signs Vital Sign Reading Time Taken Comments Blood Pressure 135/83 05/02/2024 1:11 PM SCALE RECLAMATION TENDER Pulse 85 05/02/2024 1:11 PM SCALE RECLAMATION TENDER Temperature 36.2 C (97.2 F) 05/02/2024 1:11 PM SCALE RECLAMATION TENDER Respiratory Rate 20 05/02/2024 1:11 PM SCALE RECLAMATION TENDER Oxygen Saturation - - Inhaled Oxygen Concentration - - Weight 91.2 kg (200 lb 15.2 oz) 05/02/2024 1:11 PM SCALE RECLAMATION TENDER Height 162.5 cm (5' 3.98) 05/02/2024 1:11 PM CS T Body Mass Index 34.52 05/02/2024 1:11 PM SCALE RECLAMATION TENDER documented in this encounter Progress Notes * Jayant Mckeon P.A.-C. - 05/02/2024 1:30 PM CST SUBJECTIVE CHIEF COMPLAINT / REASON FOR VISIT Sarika Negro is a 63 y.o. female who presents for evaluation of Follow-up (3 course of antibiotics for sinus inf// still not better). HISTORY OF PRESENT ILLNESS Sarika presents today with a couple different issues. She has a longstanding history of sinusitisthat has been recurrent she has been on three courses of Augmentin and her symptoms persist she says that it got a little better before it got worse again she had nice response to Flonase. She also has a history of thyroid cancer status post treatment of this. Overall that has been stable. She alsohas been struggling with a tremor. She says it is bothers her at certain times worse than others she is wondering about possible treatment of this. She says today she is not having any symptoms. OBJECTIVE Vitals: 05/02/24 1311 BP: 135/83 BP Location: Left arm Patient Position: Sitting Cuff Size: Regular Pulse: 85 Resp: 20 Temp: 36.2 ??C TempSrc: Temporal Weight: 91.2 kg Height: 162.5 cm Body mass index is 34.52 kg/m??. PHYSICAL EXAMINATION General: Patient appears in no acute distress. ENT: TMs no erythema. Throat no erythema. She has discomfort to percussion over her maxillary sinuses bilaterally Neck: No lymphadenopathy. No thyroid masses. Heart: Regular rate and rhythm. No murmurs. Lungs: Clear to auscultation. Abdomen: Soft and nontender to palpation. ASSESSMENT / PLAN #1 Acute Upper Respiratory Infection Unspecified At this point we are going to continue with conservative management #2 Sinusitis I recommend she go back to the Flonase and use it daily. She may also try a nasal saline lavage in addition to this and if her symptoms worsen or not resolve she will let us know #3 Tremor Essential We talked about a couple different options for this. I think it would be reasonable to give her a small dose of propranolol to use on an as-needed basis. She says certain days the tremor is worse than others she will give this a try and let us know how she responds. #4 Malignant Neoplasm Of Thyroid (HCC) She will continue to follow with her endocrinology team. If she has any questions or problems she will let us know I did review her last ultrasound. Total time spent 30 minutes Jayant Mckeon P.A.-C. E RECLAMATION TENDER E RECLAMATION TENDER documented in this encounter Plan of Treatment Not on file documented as of this encounter Visit Diagnoses Diagnosis Tremor Essential- Primary Acute Upper Respiratory Infection Unspecified Sinusitis Malignant Neoplasm Of Thyroid (HCC) documented in this encounter Additional Health Concerns Assessment Noted Time PHQ-9 Depression Total Score: 0 09/22/19 17 8:46 AM CDT documented as of this encounter Care Teams Tax Intern Relationship Specialty Start Date End Date Jayant Mckeon P.A.-C. [address] [place] [phone] PCP - General Family Medicine 02/08/20 documented as of this encounter
--- OUTSIDE RECORDS SUMMARY | 2024-05-31 06:18 | XMS_ITS | Encounter Summary ---
Author Organization [facility] Address [address] [place] [address] Care Team Providers Care Mineral Resources Inspector Name Role Phone Jayant Mckeon P.A.-C. Primary Care Provider Reason for Visit * Reason Comments Med Refill Encounter Details Date Type Department Care Team (Late st Contact Info) Description 05/02/2024 Refill Department of Family Medicine, [facility], in [place], [place] [address] [place] [phone] Jayant Mckeon P.A.-Raiza [address] [place] [phone] Med Refill Social History Tobacco Use Types Packs/Day Years Used Date Smoking Tobacco: Never Passive Smoke Exposure: Never Smokeless Tobacco: Never Alcohol Use Standard Drinks/Week Comments Yes 0 (1 standard drink = 0.6 oz pur e alcohol) Varies [facility] Utilities Answer Date Recorded In the past 12 months has e [employer], gas, oil, or water [employer] threatened to shut off services in your [...] declined 05/21/2022 How often do you attend adventist or presybeterian serv ices? Patient declined 05/21/2022 Do you belong to any clubs o r organizations such as adventist groups, unions, fraternal or athletic groups, or [...] Answer Date Recorded PHQ-2 Score 0 06/29/2023 [facility] of Occupat ional Health - Occupational Stress [...] PM CDT Legal Sex Female 6:29 AM OTOLARYNGOLOGY PHYSICIAN Gender Identity Female 02/12/2018 8:50 PM CDT Sexual Orientation Straight 02/12/2018 8: 50 PM CDT documented as of this encounter Plan of Treatment Not on file documented as of this encounter Visit Diagnoses Not on filedocumented in this encounter Additional Health Concerns Assessment Noted Time PHQ-9 Depression Total Score: 0 09/22/19 17 8:46 AM CDT documented as of this encounter Care Teams Mineral Resources Inspector Relationship Specialty Start Date End Date Jayant Mckeon P.A.-C. [address] [place] [phone] PCP - General Family Medicine 02/08/20 documented as of this encounter
--- OUTSIDE RECORDS SUMMARY | 2024-05-31 06:18 | XMS_ITS | Clinical Summary ---
Author Organization [employer] [facility] Address [place], [place] [address] Care Team Providers Care Fur Sorter Name Role Phone Jayant Mckeon Primary Care Provider [phone] Allergies Active Allergy Reactions Criticality Noted Date Comments Adhesive Tape 07/14/2007 skin reactin scab Bee Venom Protein (Honey Bee) Shortness Of Breath 05/09/2019 Cephalexin Nausea And Vomiting 05/09/2019 Monosodium Glutamate Nausea Only 05/09/2019 rash Sulfa (Sulfonamide Antibiotics) Rash 07/03/2007 upset stomach Medications MULTIVITAMINS W-MINERALS (MULTIVITAMIN & MINERAL FORMULA ORAL) Take 2 tablets by mouth once daily. Active HYDROCHLOROTHI AZIDE ORAL Take 50 mg by mouth once daily. daily Active POTASSIUM ORAL Take 20 mEq by mouth 2 times daily. Take one daily Active ORDER - MEDICATION ORDER COMPOSER I-3C--take 2 daily, dose adjusted with labwork. Active ORDER - MEDICATION ORDER COMPOSER Estra factor---take 3 daily--dose adjusted depending on labwork. Active docosahexanoic acid-eicosapen t (FISH OIL) capsule Take 2 capsules by mouth every morning. Take 2 daily Active ORDER - MEDICATION ORDER COMPOSER [employer] Brand--Ultra Britt--take 2 daily Active ORDER - MEDICATION ORDER COMPOSER Medigenics--Advoc lear---3 daily Active ORDER - MEDICATION ORDER COMPOSER Medigenics--Dynam ic Greens--take 2 scoops per day. Active ORDER - MEDICATION ORDER COMPOSER y prime--Ultra meal--Rice, one scoop daily Active acyclovir (ZOVIRAX) 5 % cream Apply 1 Dose topically to affected area(s) 6 times daily. Active EPINEPHrine (EPIPEN) 0.3 mg/0.3 mL injection Inject 0.3 mg intramuscular one time if needed for Allergic Reaction. Active fluorouracil 0.5% topical (CARAC) 0.5 % cream Apply 1 Applicator topically to affected area(s) 2 times daily. Active docosahexanoic acid/epa (FISH OIL ORAL) Take 500 mg by mouth once daily. 2 capsules daily Active fexofenadine/p seudoephedrine (SRUTHI-D 12 HOUR ORAL) Take 1 tablet by mouth 2 times daily. Active ibuprofen (ADVIL; MOTRIN) 600 mg tablet Take 600 mg by mouth 3 times daily with meals. Maximum of 3200 mg in 24 hours. Active metroNIDAZOLE (NORITATE CREAM) 1 % cream Apply 1 Applicator topically to affected area(s) once daily. Active triamcinolone (ARISTOCORT; KENALOG) 0.1 % cream Apply 1 g topically to affected area(s) 2 times daily. Active Active Problems No known active problems Family History Medical History Relation Name Comments Cancer-breast Maternal Aunt dx age post Cancer-breast Paternal Aunt 1 diagnosed u nknown age , pasted away 50 same aunt with ovarian ca Cancer-ovarian Paternal Aunt 1 Cancer-breast Paternal Aunt 2 . diagnosed in her 70's same pat aunt with ovarian ca Cancer-ovarian Paternal Aunt 2 Cancer-breast Paternal Grandmother diagno sed unknown age- arm tumor Cancer Paternal Uncle 1 lung cancer Cancer Paternal Uncle 2 skin cancer related to chemical exposure Cancer-breast Sister diagnosed age 29 breast cancer and other breast removed profalactically,also ovarian age mid 30's Cancer-ovarian Sister 26 Cancer-colon No Family History Cancer-prostate No Family History Relation Name Status Comments Maternal Aunt Paternal Aunt 1 Paternal Aunt 2 Paternal Grandmother Paternal Uncle 1 Paternal Uncle 2 Sister Social History Tobacco Use Types Packs/Day Years Used Date Smoking Tobacco: Never Smokeless Tobacco: Never Alcohol Use Standard Drinks/Week Comments Yes 0 (1 standard drink = 0.6 oz pur e alcohol) rare Comments No Sex and Gender Information Value Date Recorded Sex Assigned at Not on file Legal Sex Female 5:23 AM DEPOT MANAGER Gender Identity Not on file Sexual Orientation Not on file Obstetrics History Para Term AB IAB SAB Ectopic Multiple Livin g Live Births 0 Last Filed Vital Signs Vital Sign Reading Time Taken Comments Blood Pressure 162/80 05/14/2019 9:15 AM DEPOT MANAGER Pulse 74 05/14/2019 9:15 AM DEPOT MANAGER Temperature 36.8 C (98.3 F) 05/14/2019 7:55 AM DEPOT MANAGER Respiratory Rate 16 05/14/2019 9:15 AM DEPOT MANAGER Oxygen Saturation 98% 05/14/2019 9:15 AM DEPOT MANAGER Inhaled Oxygen Concentration - - Weight 94.2 kg (207 lb 9.6 oz) 05/14/2019 7:55 A M DEPOT MANAGER Height 165.1 cm (5' 5) 09/25/2009 12:00 PM CDT Body Mass Index 34.55 09/25/2009 12:00 PM CDT Plan of Treatment Health Maintenance Due Date Last Done Comments Tdap 1969 Depression screening for age 12+ 1970 HIV for age 15-65 1973 BMI (ht and wt on same day) for age 18+ 1976 Hepatitis C screening for ag e 18-79 1976 Tetanus booster 1978 Pap test for age 21-65 09/18/1979 Lipids for age 45-75 09/18/2003 Pneumococcal series for age 50+ (1 of 1 - PCV) 2008 Zoster (shingles) series for age 50+ (1 of 2) 2008 Mammogram for age 45-75 03/18/2022 03/18/20, 04/29/2020, 04/12/2019, Additional history exists DEXA/DXA scan for age 65+ 09/18/2023 COVID-19 vaccine series (2 - season) 2024 04/08/2021 Influenza for age 65+ 01/29/2024 Colonoscopy through age 75 05/14/202905/14, 05/08/2009, 05/08/2009 RSV vaccine for adults or (1 - 1-dose 75+ series) 2033 Procedures Procedure Name Priority Date/Time Associated Diagnosis Comments XR MAMMO JOSE BILAT SCREEN Routine 03/18/2021 11:28 AM CDT Encounter for screening mammogram for malignant neoplasm of breast COLONOSCOPY 05/14/2019 8:16 AM DEPOT MANAGER from Last 3 Months or Most Recently Relevant to Health Maintenance Results * XR MAMMO JOSE BILAT SCREEN (03/18/2021 11:28 AM CDT) Anatomical Region Laterality Modality BREASTS, Breast Left, Breast Right Bilateral Mammography Impressions 03/18/2021 11:39 AM CDT There is no radiographic evidence for malignancy. Recommend annual mammograms. MAMMOGRAM ASSESSMENT: ACR 2 Benign PATIENTS: You will also receive a letter with your examination results in an easy to read format. If you have questions about your results, please contact your referring provider. Narrative 03/18/2021 11:39 AM CDT For Patients: As a result of the Cures Act, medical imaging exams and procedure reports are released immediately into your electronic medical record. You may view this report before your referring provider. If you have questions, please contact your health care provider. XR MAMMO JOSE BILAT SCREEN [[id number]] CLINICAL HISTORY: This is an asymptomatic 60 y.o. patient. INDICATION FOR EXAM: Mammogram Screening. TECHNIQUE: CC & MLO views were obtained. This study was evaluated with the assistance of Computer-Aided Detection. Breast Tomosynthesis was used in interpretation. COMPARISON FILMS: Yes 04/29/20 [facility] 04/12/19 [facility] FINDINGS: The breasts have scattered areas of fibroglandular density. No suspicious masses or microcalcifications. Post treatment changes within right breast. us Jayant RENDON MAMMO Final Result * COLONOSCOPY (05/14/2019 8:16 AM DEPOT MANAGER) 05/14/2019 8:16 AM DEPOT MANAGER Narrative Transcriptions Jayden Benton MD - 05/14/2019 8:55 AM CST Patient Name: Sarika Negro Procedure Date: 05/14/2019 Gender: Female Date of : 1960 Admit Type: Ambulatory Procedure: Colonoscopy Proceduralist: Tonny Benton [facility] Indications/Pre-Op Diagnosis: Screening for colorectal malignantneoplasm Medications: None Procedure Description: The patient had risks, benefits and alternatives explained to andgave informed consent. The patient had a stable cardiopulmonary status and judged an adequate candidate for conscious sedation. The colonoscope was passed through the anus and advanced to thececum, identified by appendiceal orifice and ileocecal valve. Thecolonoscopy was performed without difficulty. The patient tolerated the procedure well. The quality of the bowel preparation was evaluated using theBBPS ([place] Bowel Preparation Scale) with scores of: Right Colon = 3, Transverse Colon = 3 and Left Colon = 3 (entire mucosa seen well withno residual staining, small fragments of stool or opaque liquid). Thetotal BBPS score equals 9. Complications: No immediate complications. Estimated Blood Loss & Specimen: Estimated blood loss: none. Specimen collected - Yes and sent to Laboratory Findings: The perianal and digital rectal examinations were normal. Two sessile polyps were found in the entire colon. The polyps weresmall in size. These polyps were removed with a cold biopsy forceps.Resection and retrieval were complete. Impressions/Post-Op Diagnosis: - Two small polyps in the entire colon, removed with a cold biopsy forceps. Resected and retrieved. Recommendation: - Telephone my office for pathology results in 1 week. Tonny Benton, 05/14/2019 8:55:27 AM This report has been signed electronically. Note Initiated On: 05/14/2019 8:16 AM us Jayden Benton MD PROCEDURE ORD Final Resul t from Last 3 Months or Most Recently Relevant to Health Maintenance Insurance [employer] [facility] Advance Directives * Full Code (Latest Code Status on File) Date Activated Date Inactivated Comments 05/14/2019 7:37 AM 05/14/2019 11:33 AM * Full Code Date Activated Date Inactivated Comments 05/26/2009 7:18 AM 05/26/2009 12:50 PM Care Teams Fur Sorter Relationship Specialty Start Date End Date Jayant Mckeon PA PCP - General Physician Lead Manufacturing Technician 04/28/20
--- OUTSIDE RECORDS SUMMARY | 2024-05-31 06:18 | XMS_ITS | Encounter Summary ---
Author Organization [facility] Address [address] [place] [address] Care Team Providers Care Net Developer Consultant Name Role Phone Jayant Mckeon P.A.-C. Primary Care Provider Reason for Referral * Outpatient (Routine) - Authorized Specialty Diagnoses / Procedures Referred By Contisaias t Referred To Contact Diagnoses Acute Upper Respiratory Infection Unspecified Renetta Garcia APRN, C.N.P., D.N.P. [address] [place] [phone] Phone: tel: fax: [facility] Referral ID Status Reason Start Date Expiration Date V isits Requested Visits Authorized [id number] Authorized 04/13/2024 10/13/2025 1 1 STONE SETTER Reason for Visit * Reason Comments Upper Respiratory Infection URI since Encounter Details Date Type Department Care Team (Late st Contact Info) Description 04/13/2024 2:30 PM CURBSTONE SETTER Office Visit Department of Family Medicine, [facility], in [place] [address] [place] [address] Renetta Garcia APRN, C.N.P., D.N.P. [address] [place] [phone] Acute Upper Respiratory Infection Unspecified (Primary Dx); Sinusitis Social History Tobacco Use Types Packs/Day Years Used Date Smoking Tobacco: Never Passive Smoke Exposure: Never Smokeless Tobacco: Never Alcohol Use Standard Drinks/Week Comments Yes 0 (1 standard drink = 0.6 oz pur e alcohol) Varies [facility] Utilities Answer Date Recorded In the past 12 months has e ideeli, gas, oil, or water [employer] threatened to shut off services in your [...] declined 05/21/2022 How often do you attend christianity or adventist serv ices? Patient declined 05/21/2022 Do you belong to any clubs o r organizations such as christianity groups, unions, fraternal or athletic groups, or [...] Answer Date Recorded PHQ-2 Score 0 06/29/2023 [facility] - Occupational Stress Questionnaire Answer Date Recorded [...] PM CDT Legal Sex Female 6:29 AM CURBSTONE SETTER Gender Identity Female 02/12/2018 8:50 PM CDT Sexual Orientation Straight 02/12/2018 8: 50 PM CDT documented as of this encounter Last Filed Vital Signs Vital Sign Reading Time Taken Comments Blood Pressure 158/97 04/13/2024 2:34 PM CURBSTONE SETTER Pulse 87 04/13/2024 2:34 PM CURBSTONE SETTER Temperature 36 C (96.8 F) 04/13/2024 2:29 PM CURBSTONE SETTER Respiratory Rate 20 04/13/2024 2:29 PM CURBSTONE SETTER Oxygen Saturation - - Inhaled Oxygen Concentration - - Weight 92.6 kg (204 lb 2.3 oz) 04/13/2024 2:29 P M CURBSTONE SETTER Height - - Body Mass Index 35.07 12/09/2023 2:23 PM CDT documented in this encounter Progress Notes * Osito-Renetta Dover, SHASHI, C.N.P., D.N.P. - 04/13/2024 2:30 PM CURBSTONE SETTER SUBJECTIVE CHIEF COMPLAINT / REASON FOR VISIT Sarika Negro is a 63 y.o. female who presents for evaluation of Upper Respiratory Infection (URI since 02/18). HISTORY OF PRESENT ILLNESS Sarika Negro is a pleasant 63-year-old female PMH hypertension, thyroid neoplasm, hyperlipidemia, presents with a upper respiratory infection ongoing since 02/19/2024. She reports sinusitis symptoms that began 2 weeks before March 04. Initially treated with a 7 day course of Augmentin, the symptoms improved but returned after completion. Then a 2nd 7 day course of Augmentin was prescribed, with similar results. Sarika reports persistent symptoms since January, including eye pain, pressure in the eyes and ears, and swollen neck. She has been taking Mucinex DM, Sudafed which she believes has caused elevation in blood pressure. Sarika believes allergies may have triggered her sinus issues. States she recently switch from Claritin to a homeopathic remedy-histamine, which has been ineffective. She reports experiencing pressure in the nose and throat, with the postnasal drainage. OBJECTIVE Vitals: 04/13/24 1429 04/13/24 1434 BP: (!) 161/94 (!) 158/97 BP Location: Right arm Right arm Patient Position: Sitting Sitting Cuff Size: Regular Regular Pulse: 90 87 Resp: 20 Temp: 36 ??C TempSrc: Temporal Weight: 92.6 kg Body mass index is 35.07 kg/m??. PHYSICAL EXAMINATION HENT Head: Normocephalic. Right Ear: Tympanic membrane is bulging. Left Ear: Tympanic membrane is bulging. Nose: Right Sinus: Maxillary sinus tenderness present. Left Sinus: Maxillary sinus tenderness present. Mouth/Throat: Tonsils: 3+ on the right. 3+ on the left. Pulmonary Effort: Pulmonary effort is normal. Breath sounds: Normal breath sounds. ASSESSMENT / PLAN #1 Acute upper respiratory infection unspecified #2 Sinusitis Clinical decision-making: Patient reports history of sinusitis, with a recent course of Augmentin providing temporary relief but symptoms returned after completion of 7 day regimen. On physical examination patient complain of maxillary sinus pain and pressure with the palpation. Tonsils are 3+ -source of throat tenderness. Complain of fullness in head and forehead when she lowers head. I will go ahead and prescribe Augmentin twice a day for 10 days. She is instructed to take with food. Advised to monitor for diarrhea and to take a probiotic to maintain gut health given recent use of antibiotics. Recommend cool mist humidifier in sleeping space, changing furnace filters as dust is an allergic rhinitis trigger. Encouraged use of Claritin or Zyrtec for allergic rhinitis. Flonase sent to pharmacy to be used daily for 10 days. Patient can also use nasal saline for rinses. Instructed to discontinue use of Sudafed. Blood pressure today 158/97 and patient was attributing use of Sudafed to this. She is to return in 2 weeks for blood pressure recheck. All questions answered and patient voiced understanding and agreed with the plan. Renetta Garcia APRN, C.N.P., D.N.P. Addendum:My blood pressure was elevated that day because I???ve been taking Sudafed. Here are my blood pressure reading so I don???t need to come in. Tuesday 135/80 pulse 72 Tuesday 122/77 pulse 86 Tuesday 133/77 pulse 80 Addendum: Patient with a persistent sinus symptoms, will go ahead and send her doxycycline 100 mg twice daily for 5 days if symptoms persist beyond that patient will need to return to clinic for reassessment. Renetta Garcia APRN, C.N.P., D.N.P. STONE SETTER STONE SETTER STONE SETTER documented in this encounter Plan of Treatment Scheduled Referrals Name Type Priority Associated Diagnoses Orde r Schedule Primary Care nurse visit (clinic) - [facility]; BP check; BP check only (SECONDARY SCHOOL TEACHER LIBRARIAN) Outpatient Referral Routine Acute Upper Respiratory Infection Unspecified Expected: 04/27/2024 (Approximate), Expires: 07/14/2025 documented as of this encounter Visit Diagnoses Diagnosis Acute Upper Respiratory Infection Unspecified- Primary Sinusitis documented in this encounter Additional Health Concerns Assessment Noted Time PHQ-9 Depression Total Score: 0 09/22/19 17 8:46 AM CDT documented as of this encounter Care Teams Net Developer Consultant Relationship Specialty Start Date End Date Jayant Mckeon P.A.-C. [address] [place] [phone] PCP - General Family Medicine 02/08/20 documented as of this encounter
--- OUTSIDE RECORDS SUMMARY | 2024-05-31 06:18 | XMS_ITS | Referral Summary ---
Author Organization [facility] Address [address] [place] [id number] Care Team Providers Care Dough Cutting Machine Operator Name Role Phone Jayant Mckeon P.A.-C. Primary Care Provider Source Comments Patient records contain information from all sites at [facility]. For routine questions regarding patient records, call [phone] during business hours, M-F 8:00 AM - 5:00 PM Central Time. Record requests for emergency care only can be directed to [phone] at any time.[facility] Encounters Date Type Department Care Team Description 05/02/2024 Refill Department of Family Medicine, [facility], [address] [phone] Jayant Mckeon P.A.-C. Med Refill 05/02/2024 1:30 PM OPTICAL INSTRUMENT ASSEMBLER Office Visit Department of Family Medicine, [facility], [address] [phone] Jayant Mckeon P.A.-C. Tremor Essential (Primary Dx); Acute Upper Respiratory Infection Unspecified; Sinusitis; Malignant Neoplasm Of Thyroid (HCC) 04/13/2024 2:30 PM OPTICAL INSTRUMENT ASSEMBLER Office Visit Department of Family Medicine, [facility], [address] [phone] Renetta Garcia APRN, C.N.P., D.N.P. Acute Upper Respiratory Infection Unspecified (Primary Dx); Sinusitis 04/13/2024 Nurse Triage Department of Family Medicine, [facility], in [place], [place] [address] [place] [address] Trish Fisher R.N. Upper Respiratory Infection; Ear Fullness 04/12/2024 2:30 PM OPTICAL INSTRUMENT ASSEMBLER Ancillary Procedure Department of Radiology in the Breast Clinic, [facility] in [address] [phone] Jayant Mckeon P.A.-C. Screening Osteoporosis 04/10/2024 11:00 AM OPTICAL INSTRUMENT ASSEMBLER Virtual Visit Division of Endocrinology in [place], [place] [address] [place] [address] Rodney Briceno M.B.B.S. Malignant Neoplasm Of Thyroid (HCC) 04/09/2024 12:00 PM OPTICAL INSTRUMENT ASSEMBLER Procedure visit Department of Dermatology in [address] [phone] Selma Adorno M.D. Hod[place], [place] M Hair Facial (Hirsutism) 04/09/2024 3:40 PM OPTICAL INSTRUMENT ASSEMBLER - 04/09/2024 11:59 PM OPTICAL INSTRUMENT ASSEMBLER Hospital Encounter Department of Radiology, [facility], in [place], [place] [address] [place] [address] Rodney Briceno M.B.B.S. Malignant Neoplasm Of Thyroid (HCC) Discharge Disposition: Home or Self Care 04/09/2024 2:44 PM OPTICAL INSTRUMENT ASSEMBLER - 04/09/2024 3:39 PM OPTICAL INSTRUMENT ASSEMBLER Hospital Encounter Department of Laboratory Medicine, [facility], in [place], [place] [address] [place] [phone] Rodney Briceno M.B.B.S. Malignant Neoplasm Of Thyroid (HCC) Discharge Disposition: Home or Self Care 04/04/2024 4:15 PM OPTICAL INSTRUMENT ASSEMBLER Comprehensive Visit Department of Dermatology in [address] [phone] Selma Adorno M.D. Cancer Skin Basal Cell Personal History (Primary Dx); Hair Facial (Hirsutism); Nevi Multiple; Keratosis Seborrheic; Keratosis Seborrheic Inflamed; Dermatoheliosis; Angioma [place] 03/01/2024 2:07 PM CDT - 03/01/2024 11:59 PM CDT Hospital Encounter Department of Laboratory Medicine in [address] [phone] Rodney Briceno M.B.B.S. Malignant Neoplasm Of Thyroid (HCC) Discharge Disposition: Home or Self Care from Last 3 Months Allergies Active Allergy Reactions Criticality Noted Date [...] in situ right breast status post lumpectomy Immunizations Name Administration Dates Next Due DT, Pediatric 03/04/2004 HepA Adult 06/10/1999,05/26/1998 HepB, Unspecified 03/04/2004,05/25/1999,05/26/19 98 Influenza, Seasonal, Injectable 05/03/2007,03/30 Pneumococcal Conjugate(PCV), Unspecified 10/06/2023(Deferred: Patient decision) SARS-COV-2 (COVID-19) - JANS SEN (J&J)(Discontinued) 04/08/2021 SARS-COV-2 (COVID-19) - PFIZ ER BIVALENT TS(Discontinued)(12 YEARS OR OLDER) 10/06/2023(Deferred: Patient decision) Tdap 03/31/2015 typhoid vaccine, parenteral (discontinued) 02/19/2010 Social History Tobacco Use Types Packs/Day Years Used Date Smoking Tobacco: Never Passive Smoke Exposure: Never Smokeless Tobacco: Never Tobacco Cessation:Counseling Given: Not Answered Alcohol Use Standard Drinks/Week Comments Yes 0 (1 standard drink = 0.6 oz pur e alcohol) Varies [facility] Utilities Answer Date Recorded In the past 12 months has [employer], gas, oil, or water [employer] threatened to shut off services in your [...] declined 05/21/2022 How often do you attend episcopalian or restorationist serv ices? Patient declined 05/21/2022 Do you belong to any clubs o r organizations such as episcopalian groups, unions, fraternal or athletic groups, or [...] Answer Date Recorded PHQ-2 Score 0 06/29/2023 [facility] - Occupational Stress [...] PM CDT Legal Sex Female 6:29 AM OPTICAL INSTRUMENT ASSEMBLER Gender Identity Female 02/12/2018 8:50 PM CDT Sexual Orientation Straight 02/12/2018 8: 50 PM CDT Last Filed Vital Signs Vital Sign Reading Time Taken Comments Blood Pressure 135/83 05/02/2024 1:11 PM OPTICAL INSTRUMENT ASSEMBLER Pulse 85 05/02/2024 1:11 PM OPTICAL INSTRUMENT ASSEMBLER Temperature 36.2 C (97.2 F) 05/02/2024 1:11 PM OPTICAL INSTRUMENT ASSEMBLER Respiratory Rate 20 05/02/2024 1:11 PM OPTICAL INSTRUMENT ASSEMBLER Oxygen Saturation 93% 09/13/2023 10: 58 AM CDT Inhaled Oxygen Concentration - - Weight 91.2 kg (200 lb 15.2 oz) 05/02/2024 1:11 PM OPTICAL INSTRUMENT ASSEMBLER Height 162.5 cm (5' 3.98) 05/02/2024 1:11 PM CS T Body Mass Index 34.52 05/02/2024 1:11 PM OPTICAL INSTRUMENT ASSEMBLER Plan of Treatment Not on file Medical Devices Implanted Type Area Chief Technologist Device Identifier Shelf Expiration Date Model / Serial / Lot Hardware E.G. Pins/Screws/Ro ds Hardware e.g. pins/screws/ rods Right: Foot Clp Hrzn Ti 6 Clp Sm Red - [id number] Implanted:Qty: 1 on 09/13/2023 by Kirby Benítez M.D. at [facility] Hardware e.g. pins/screws/ rods Right: [employer] [id number] / / Procedures Procedure Name Priority Date/Time Associated Diagnosis Comments BMD BONE DENSITY SPINE HIPS RAD - Routine (most inpatients and all outpatients) 04/12/2024 2:43 PM OPTICAL INSTRUMENT ASSEMBLER Screening Osteoporosis US THYROID RAD - Routine (most inpatients and all outpatients) 04/09/2024 4:35 PM OPTICAL INSTRUMENT ASSEMBLER Malignant Neoplasm Of Thyroid (HCC) T4 (THYROXINE), FREE, S Routine 04/09/2024 2:52 PM OPTICAL INSTRUMENT ASSEMBLER Malignant Neoplasm Of Thyroid (HCC) THYROID-STIMULATING HORMONE-SENSITIVE (S-TSH) Routine 04/09/2024 2:52 PM OPTICAL INSTRUMENT ASSEMBLER Malignant Neoplasm Of Thyroid (HCC) THYROGLOBULIN, TM, S Routine 04/09/2024 2:52 PM OPTICAL INSTRUMENT ASSEMBLER Malignant Neoplasm Of Thyroid (HCC) SCOTT HUMAN RESOURCES ADMINISTRATOR Routine 04/09/2024 12:00 PM OPTICAL INSTRUMENT ASSEMBLER Hair Facial (Hirsutism) THYROID-STIMULATING HORMONE-SENSITIVE (S-TSH) Routine 03/01/2024 2:12 PM CDT Malignant Neoplasm Of Thyroid (HCC) BI BREAST SCREENING BILATERAL WITH TOMOSYNTHESIS RAD - Routine (most inpatients and all outpatients) 06/30/2023 1:42 PM OPTICAL INSTRUMENT ASSEMBLER Screening Mammogram Breast Cancer LIPID PANEL, S Routine 06/28/2023 11:44 AM OPTICAL INSTRUMENT ASSEMBLER Hypertension Essential Primary Hyperlipidemia Screening Examination Diabetes Mellitus Encounter For Screening For Cardiovascular Disorders COMPREHENSIVE METABOLIC PANEL, S/P Routine 06/28/2023 11:44 AM OPTICAL INSTRUMENT ASSEMBLER Hypertension Essential Primary Hyperlipidemia Screening Examination Diabetes Mellitus Encounter For Screening For Cardiovascular Disorders from Last 3 Months or Most Recently Relevant to Health Maintenance Results * BMD Bone Density Spine Hips (04/12/2024 2:43 PM OPTICAL INSTRUMENT ASSEMBLER) Anatomical Region Laterality Modality Hip, Lumbar Spine, Nuclear M edicine RST LOS, Musculoskeletal ARZ LOS, Muskuloskeletal FLA LOS N/A Radio graphic Imaging Impressions 04/12/2024 3:01 PM OPTICAL INSTRUMENT ASSEMBLER Normal bone mineral density. Narrative 04/12/2024 3:01 PM OPTICAL INSTRUMENT ASSEMBLER EXAM: BMD BONE DENSITY SPINE HIPS Bone Mineral Density (BMD) analysis performed on [employer] with serial number [id number]. FINDINGS: Left Hip: Femur Neck: BMD = [...] including images and graphs, is available in [employer]. In the absence of other causes of [...] Bone Mineral Density (BMD) analysis performed on [employer] serial number [id number]. FINDINGS: Left Hip: Femur Neck: BMD = [...] Result * US Thyroid (04/09/2024 4:35 PM OPTICAL INSTRUMENT ASSEMBLER) Anatomical Region Laterality Modality Head and Neck, Ultrasound RS T LOS, Ultrasound ARZ LOS, Ultrasound FLA LOS N/A Ultrasound Impressions 04/10/2024 11:39 AM OPTICAL INSTRUMENT ASSEMBLER 1. Recommend ultrasound-guided FNA of a new high suspicion nodule in the left thyroid lobe. 2. New left cervical level 5 lymph node with suspicious morphologic features. Consider tissue sampling. 3. New prominent right level 4-5 lymph nodes without abnormal features. Continued attention on follow up recommended. Narrative 04/10/2024 11:39 AM OPTICAL INSTRUMENT ASSEMBLER EXAM: US THYROID COMPARISON: Thyroid ultrasound 07/04/2023 [...] (0) * echogenic foci: macrocalcification (1). The Basile ultrasound score is 3. Based on the [...] Nodule Care Process Model established by the [facility] Endocrine Oncology [facility] [place]. [email or web address]://[email or web address]/topic/clinical-answers/[email or web address]/sec-[email or web address] 92156 The AskMayoExpert Thyroid Nodule CPM states the [...] (0) * echogenic foci: macrocalcification (1). The Basile ultrasound score is 3. Based on the AskMsyoExpert Thyroid NoduleCare Process Model, the nodule has [...] ThyroidNodule Care Process Model established by the [facility] EndocrineOncology Specialty [place].[email or web address]://[email or web address]/topic/clinical-answers/[email or web address] /sec- [email or web address] The AskMayoExpert Thyroid Nodule CPM states the [...] abnormal features.Continued attention on follow up recommended. us Rodney Brian IMG US PROCEDURES Final Result * (ABNORMAL) Thyroglobulin, Tumor Marker (04/09/2024 2:52 PM OPTICAL INSTRUMENT ASSEMBLER) Pathologist [facility] Thyroglobulin Antibody, S 4.3(H) <1.8 IU/mL 04/10/2024 9:32 AM OPTICAL INSTRUMENT ASSEMBLER [facility] Thyroglobulin, Tumor Marker, S 7.2(H) ng/mL 04/10/2024 9:19 AM OPTICAL INSTRUMENT ASSEMBLER [facility] Comment: ----REFERENCE VALUE---- Athyrotic <0.1 Intact Thyroid <=33 Thyroglobulin Interpretation SEE COMMENT 04/10/2024 9:32 AM OPTICAL INSTRUMENT ASSEMBLER [facility] Comment: Quantitation of thyroglobulin may be unreliable [...] testing methods are immunoenzymatic assays manufactured by [employer] and performed on the [employer] DXI 800. Values obtained from different assay methods or kits may be different and cannot be used interchangeably. The results cannot be interpreted as absolute evidence for the presence or absence of malignant disease. Blood (Blood, Venous) 04/09/2024 2:52 PM OPTICAL INSTRUMENT ASSEMBLER 04/10/2024 7:37 AM OPTICAL INSTRUMENT ASSEMBLER us Rodney Brian LAB BLOOD ADD-ON F inal Result [facility] [address] [place] [address] [place] [place] [address] [place] [address] * S-TSH (Thyroid-Stimulating Hormone - Sensitive) (04/09/2024 2:52 PM OPTICAL INSTRUMENT ASSEMBLER) Only the most recent of2 resultswithin the time period is included. TSH, Sensitive 1.9 0.3 - 4.2 mIU/L 04/09/2024 5:01 PM OPTICAL INSTRUMENT ASSEMBLER [facility] Blood (Blood, Venous) 04/09/2024 2:52 PM OPTICAL INSTRUMENT ASSEMBLER 04/09/2024 4:20 PM OPTICAL INSTRUMENT ASSEMBLER Rodney Fernando.B.B.S. LAB BLOOD ADD-ON F inal Result Performing Organization Address City/[facility] Co de Phone Number [facility] [address] [place] [address], [place] [address] * T4 (Thyroxine), Free (04/09/2024 2:52 PM OPTICAL INSTRUMENT ASSEMBLER) T4 (Thyroxine), Free, P 1.4 0.9 - 1.7 ng/dL 04/09/2024 5:01 PM OPTICAL INSTRUMENT ASSEMBLER [facility] Blood (Blood, Venous) 04/09/2024 2:52 PM OPTICAL INSTRUMENT ASSEMBLER 04/09/2024 4:20 PM OPTICAL INSTRUMENT ASSEMBLER Rodney Fernando.B.B.S. LAB BLOOD ADD-ON F inal Result Performing Organization Address City/[facility] Co de Phone Number [facility] [address] [place] [address], [place] [address] * SCOTT Child Care Centre Manager (04/09/2024 12:00 PM OPTICAL INSTRUMENT ASSEMBLER) Narrative Leo Kellogg - 04/09/2024 12:00 PM OPTICAL INSTRUMENT ASSEMBLER Leo Kellogg 04/09/2024 12:01 PM CHIEF COMPLAINT / REASON [...] needed. *DO NOT CHARGE-PATIENT HAS ALREADY PAID* Selma Adorno M.D. DERM PROCEDURE ORDERABLES F inal Result * BI Breast Screening Bilateral with Tomosynthesis (06/30/2023 1:42 PM OPTICAL INSTRUMENT ASSEMBLER) Anatomical Region Laterality Modality Breast, Breast Imaging RST L OS, Breast Imaging ARZ LOS, Breast Imaging FLA LOS Bilateral Mammography Impressions 06/30/2023 2:22 PM OPTICAL INSTRUMENT ASSEMBLER Benign. RECOMMENDATION: Annual Screening Mammogram ASSESSMENT: BI-RADS: 2: Benign. Narrative 06/30/2023 2:22 PM OPTICAL INSTRUMENT ASSEMBLER EXAM: BI BREAST SCREENING BILATERAL WITH TOMOSYNTHESIS [...] Annual Screening Mammogram ASSESSMENT: BI-RADS: 2: Benign. Jaaynt Mckeon P.A.-C. IMG BI PROCEDURES [place] l Result * (ABNORMAL) Lipid Panel (06/28/2023 11:44 AM OPTICAL INSTRUMENT ASSEMBLER) Triglycerides 158(H) mg/dL 06/28/2023 2:33 PM OPTICAL INSTRUMENT ASSEMBLER [facility] Comment: ----REFERENCE VALUE---- Normal: <150 mg/dL Borderline High: 150-199 mg/dL High: 200-499 mg/dL Very High: > or =500 mg/dL Cholesterol, Total 267(H) mg/dL 2023 2:33 PM OPTICAL INSTRUMENT ASSEMBLER [facility] Comment: ----REFERENCE VALUE---- Desirable: < 200 mg/dL Borderline High: 200 - 239 mg/dL High: > or = 240 mg/dL Cholesterol, LDL, Calculated 171(H) mg/dL 06/28/2023 2:33 PM OPTICAL INSTRUMENT ASSEMBLER [facility] Comment: ----REFERENCE VALUE---- Desirable: <100 mg/dL Above Desirable: 100-129 mg/dL Borderline High: 130-159 mg/dL High: 160-189 mg/dL Very High: >=190 mg/dL ----ADDITIONAL INFORMATION---- LDL cholesterol calculated using the Alex/NIH equation. Cholesterol, HDL 68 >=50 mg/dL 06/28/19 2:33 PM OPTICAL INSTRUMENT ASSEMBLER [employer]AT Cholesterol, Non-HDL, Calculated 199(H) mg/dL 06/28/2023 2:33 PM OPTICAL INSTRUMENT ASSEMBLER [facility] Comment: ----REFERENCE VALUE---- Desirable: <130 mg/dL Above Desirable: 130-159 mg/dL Borderline High: 160-189 mg/dL High: 190-219 mg/dL Very High: > or =220 mg/dL Fasting (8 HR or more) No 06/28/2023 1:38 PM OPTICAL INSTRUMENT ASSEMBLER [facility]AT Blood (Blood, Venous) 06/28/2023 11:44 AM OPTICAL INSTRUMENT ASSEMBLER 06/28/2023 1:38 PM OPTICAL INSTRUMENT ASSEMBLER us Jayant Mckeon P.A.-C. LAB BLOOD ADD-ON Final Result [facility] [address] [place] [address], [facility] OWAT [facility] in [place] [address] [place] [address] * (ABNORMAL) Comprehensive Metabolic Panel (06/28/2023 11:44 AM OPTICAL INSTRUMENT ASSEMBLER) Potassium, P 4.0 3.6 - 5.2 mmol/L 06/28/2023 2:33 PM OPTICAL INSTRUMENT ASSEMBLER [employer] Sodium, P 138 135 - 145 mmol/L 06/28/2023 2:33 PM OPTICAL INSTRUMENT ASSEMBLER [employer] Chloride, P 100 98 - 107 mmol/L 06/28/2023 2:33 PM OPTICAL INSTRUMENT ASSEMBLER [employer] Bicarbonate, P 30(H) 22 - 29 mmol/L 06/28/2023 2:33 PM OPTICAL INSTRUMENT ASSEMBLER [employer] Anion Gap, P 8 7 - 15 06/28/2023 2:33 PM OPTICAL INSTRUMENT ASSEMBLER [employer] BUN (Blood Urea Nitrogen), P 12 6 - 21 mg/dL 06/28/2023 2:33 PM OPTICAL INSTRUMENT ASSEMBLER OWAT Creatinine 0.61 0.59 - 1.04 mg/dL 06/28/2023 2:33 PM OPTICAL INSTRUMENT ASSEMBLER OWAT Estimated GFR (eGFR) >90 >=60 mL/min/BS A 06/28/2023 2:33 PM OPTICAL INSTRUMENT ASSEMBLER [facility] Comment: Estimated GFR calculated using the 2020 CKD_EPI creatinine equation. Calcium, Total, P 9.4 8.8 - 10.2 mg/dL 06/28/2023 2:33 PM OPTICAL INSTRUMENT ASSEMBLER [employer] Glucose, P 107 70 - 140 mg/dL 06/28/2023 2:33 PM OPTICAL INSTRUMENT ASSEMBLER [employer] Protein, Total, P 7.2 6.3 - 7.9 g/dL 06/28/2023 2:33 PM OPTICAL INSTRUMENT ASSEMBLER [employer] Albumin, P 4.5 3.5 - 5.0 g/dL 06/28/2023 2:33 PM OPTICAL INSTRUMENT ASSEMBLER [employer] Aspartate Aminotransferase (AST), P 63(H) 8 - 43 U/L 06/28/2023 2:33 PM OPTICAL INSTRUMENT ASSEMBLER OWAT Alkaline Phosphatase, P 68 35 - 104 U/L 06/28/2023 2:33 PM OPTICAL INSTRUMENT ASSEMBLER [employer]AT Alanine Aminotransferase (ALT), P 75(H) 7 - 45 U/L 06/28/2023 2:33 PM OPTICAL INSTRUMENT ASSEMBLER OWAT Bilirubin, Total, P 0.6 0.0 - 1.2 mg/dL 06/28/2023 2:33 PM OPTICAL INSTRUMENT ASSEMBLER [employer]AT Blood (Blood, Venous) 06/28/2023 11:44 AM OPTICAL INSTRUMENT ASSEMBLER 06/28/2023 1:38 PM OPTICAL INSTRUMENT ASSEMBLER us Jayant Mckeon P.A.-C. LAB BLOOD ADD-ON Final Result [facility] [address] [place] [address], [place] OW[place] [facility] in [place] [address] [place] [address] from Last 3 Months or Most Recently Relevant to Health Maintenance Insurance [address] [place] [id number] [facility] Advance Directives For more information, please contact: [phone] Documents on File Type Date Recorded Patient Education Coordinator Expl anation Advance Directives 06/17/2006 12:00 AM Leg acy document. See document viewer. * Full Code (Latest Code Status on File) Date Activated Date Inactivated Comments 09/13/2023 5:55 AM 09/13/2023 2:09 PM Question Answer Comments Full Code: Not Discussed Due to: Patient not available Care Teams Dough Cutting Machine Operator Relationship Specialty Start Date End Date Jayant Mckeon P.A.-C. [address] [place] [address] Memolisa Miranda [place]GUS [phone] PCP - General Family Medicine 02/08/20
[2024-05-31 06:24] VITALS: BP 170/100; PULSE 89; RESP 20; TEMP 36.7; O2SAT 99; BMI 33.3
--- NOTE | 2024-05-31 06:34 | ED.ALLEREA ---
HPI - Allergic Reaction General Date Seen: 05/31/24 Chief complaint: Allergic Reaction Stated complaint: allergic reaction Time Seen by Provider: 05/31/24 06:27 Source: patient Mode of arrival: ambulatory Limitations: no limitations History of Present Illness HPI narrative: Patient is a 63-year-old female presenting to the emergency department for concerns of an allergic reaction. She states yesterday she went to a buffet at the [employer] and during it she started the feel some itching to her hands but not think too much of it. Started also symptoms more at as they were driving home. She was feeling otherwise well and went to bed but woke up this morning and the symptoms were persisting. She has also noticed a rash on her arms and thighs along with swelling of her hands. Started to notice some swelling of her lips and she states she has some mild numbness to the area. Does not feel any chest pain or shortness of breath. Denies lightheadedness, dizziness, abdominal pain, nausea. Denies any other symptoms. States she has had allergic reaction before to fluticasone nasal spray. Similar symptoms occurred at that time. No other allergies that she is aware of. Has not taking anything at for her allergic reaction other than some ibuprofen last night. Is currently on doxycycline for a sinus infection. Related Data Home Medications ?Medication ?Instructions ?Recorded ?Confirmed epinephrine 0.3 mg/0.3 mL 0.3 ml IM DIRECTED PRN 05/31/24 05/31/24 injection, auto-injector anaphylaxis ezetimibe 10 mg tablet 10 mg PO DAILY 05/31/24 05/31/24 levothyroxine 88 mcg tablet 88 mcg PO DAILY 05/31/24 05/31/24 losartan 100 1 tab PO DAILY 05/31/24 05/31/24 mg-hydrochlorothiazide 25 mg tablet propranolol 20 mg tablet 20 mg PO 3XD 05/31/24 05/31/24 Previous Rx's ?Medication ?Instructions ?Recorded famotidine 40 mg tablet 40 mg PO DAILY #5 tabs 05/31/24 loratadine 10 mg tablet 10 mg PO DAILY #14 tabs 05/31/24 prednisone 20 mg tablet 40 mg (2 x 20 mg) PO DAILY #8 tabs 05/31/24 Allergies Allergy/AdvReac Type Severity Reaction Status Date / Time azelastine Allergy Mild Hives Verified 05/31/24 07:09 doxycycline Allergy Mild Hives Verified 05/31/24 07:09 fluticasone Allergy Mild Hives Verified 05/31/24 07:09 Review of Systems Status of ROS Reports: 10 or more systems reviewed and unremarkable except as noted in History and below [facility] Hypertension ?I10 - Essential (primary) hypertension (ICD-10) Endometriosis ?N80.9 - Endometriosis, unspecified (ICD-10) Breast cancer ?C50.919 - Malignant neoplasm of unspecified site of unspecified female breast (ICD-10) Surgical History History of tonsillectomy and adenoidectomy ?Z90.89 - Acquired absence of other organs (ICD-10) History of arthroscopy of knee ?Z98.890 - Other specified postprocedural states (ICD-10) History of reduction surgery of left breast ?Z98.890 - Other specified postprocedural states (ICD-10) S/P breast lumpectomy ?Z98.890 - Other specified postprocedural states (ICD-10) History of abdominal hysterectomy ?Z90.710 - Acquired absence of both cervix and uterus (ICD-10) Social History Smoking Status: Never smoker Second hand tobacco smoke exposure: No How often do you have a drink containing alcohol: never AUDIT-C Alcohol total score: 0 Non-prescribed substance use: denies use Exam Narrative: Exam Narrative: Const: Well-nourished, Well-developed, in mild distress Eyes: PERRL, no conjunctival injection, and symmetrical lids HENT: Atraumatic external nose and ears. Mild swelling to her lips Neck: Symmetric, trachea midline, No thyromegaly. CVS: RRR, No murmurs or gallops. Peripheral pulses 2+ and equal in all extremities RESP: Unlabored respiratory effort. Clear to auscultation bilaterally. GI: Nontender/Nondistended, No rebound or guarding. MSK:Extremities w/o deformity, Normal Active ROM Skin: Patches of urticaria noticed throughout body Neuro: Normal Muscle tone, No focal neurological deficits. Psych: Awake, Alert, & Oriented x3. Appropriate mood and affect. Const: Vital Signs, click to edit/add: Vital Signs - 24 hr 05/31/24 06:24 05/31/24 07:02 Temperature 98.0 F Pulse Rate [Right Pulse Oximeter] 89 Respiratory Rate 20 Blood Pressure [Ri ght Upper Arm] 170/100 H Pulse Oximetry 99 99 Oxygen Delivery Me thod Room Air Course Vital Signs Vital signs: Initial Vital Signs Temperature 98.0 F 05/31/24 06:24 Temperature Source Temporal Artery Scan 05/31/24 06:24 Pulse Rate 89 05/31/24 06:24 Pulse Rhythm Irregular 05/31/24 06:24 Respiratory Rate 20 05/31/24 06:24 Blood Pressure 170/100 H 05/31/24 06:24 Blood Pressure Mean 123 H 05/31/24 06:24 Blood Pressure Position Sitting 05/31/24 06:24 Pulse Oximetry 99 05/31/24 06:24 Oxygen Delivery Method Room Air 05/31/24 06:24 Vital Signs Temperature 98.0 F 05/31/24 06:24 Pulse Rate 89 05/31/24 06:24 Respiratory Rate 20 05/31/24 06:24 Blood Pressure 170/100 H 05/31/24 06:24 Pulse Oximetry 99 05/31/24 06:24 Oxygen Delivery Method Room Air 05/31/24 06:24 Temperature 98.0 F 05/31/24 06:24 Pulse Rate 89 05/31/24 06:24 Respiratory Rate 20 05/31/24 06:24 Blood Pressure 170/100 H 05/31/24 06:24 Pulse Oximetry 99 05/31/24 07:02 Oxygen Delivery Method Room Air 05/31/24 06:24 Medications Administered Medications: Discontinued Medications Generic Name Dose Route Start Last Admin Trade Name Freq PRN Reason Stop Dose Admin Diphenhydramine HCl 50 mg 05/31/24 06:32 05/31/24 06:36 Diphenhydramine 50 Mg/Ml Inj IVP 05/31/24 06:33 50 mg ONCE ONE Administration Famotidine 20 mg 05/31/24 06:32 05/31/24 06:37 Famotidine 10 Mg/Ml Inj IVP 05/31/24 06:33 20 mg ONCE ONE Administration Methylprednisolone Sodium Succinate 125 mg 05/31/24 06:32 05/31/24 06:37 Methylprednisolone Sod Succ 62.5 Mg/Ml (125) IVP 05/31/24 06:33 125 mg ONCE ONE Administration MDM - Allergic Reaction MDM Narrative Medical decision making narrative: Patient is a 63-year-old female presenting for an apparent allergic reaction. At this time she is not having any symptoms that would make her anaphylaxis. We will monitor her closely. Will give her famotidine, Benadryl, Solu-Medrol. Do not seem to have much improvement in her symptoms after the medications but continued to showing no signs of anaphylaxis. We monitored her for 2 hours and she is doing well. She already has an EpiPen at home she states it is not need a new 1. I will prescribe her Pepcid, loratidine, prednisone. She states she already takes Claritin at home with no adverse reaction. She is agreeable to this plan. Discharge Plan Discharge Clinical Impression: Allergic reaction Patient Disposition: Home, Self-Care Condition: Stable Instructions: General Allergic Reaction (ED) Additional Instructions: Take the prescribed medications as directed. Start to prednisone prescription tomorrow. Return to emergency department for new or worsening symptoms. Make sure that he started having chest pain, shortness of breath, lightheadedness, abdominal pain, nausea or any other concerning symptoms that you use your EpiPen. Prescriptions: New prednisone 20 mg tablet 40 mg PO DAILY Qty: 8 0RF loratadine 10 mg tablet 10 mg PO DAILY Qty: 14 0RF famotidine 40 mg tablet 40 mg PO DAILY Qty: 5 0RF No Action epinephrine 0.3 mg/0.3 mL auto-injector 0.3 ml IM DIRECTED PRN (Reason: anaphylaxis) ezetimibe 10 mg tablet 10 mg PO DAILY losartan-hydrochlorothiazide 100-25 mg tablet 1 tab PO DAILY levothyroxine 88 mcg tablet 88 mcg PO DAILY propranolol 20 mg tablet 20 mg PO 3XD Follow Up/Referrals: Provider,Not a Local [Primary Care Provider] - Stand Alone Forms: PrivacyProtector Info Instructions
[2024-05-31] MEDS: diphenhydrAMINE 50 MG/ML inj IVP (06:36)
[2024-05-31] MEDS: METHYLPREDNISOLONE SOD SUCC 62.5 MG/ML (125) 125 MG IVP (06:37)
[2024-05-31] MEDS: FAMOTIDINE 10 MG/ML inj 20 MG IVP (06:37)
[2024-05-31 07:02] VITALS: O2SAT 99
== END 2024-05-31 08:43 | disposition home or self-care (01) ==
PROVIDERS: Emergency Provider Student in an Organized Health Care Education/Training Program
DX: R21 Rash and other nonspecific skin eruption (principal); T78.40XA Allergy, unspecified, initial encounter
CPT/HCPCS: 94761; 96374; 96375; 99283; 99284; J1200; J2919; S0028